=== PATIENT | male | born 1995 | race Caucasian/White ===

== ENCOUNTER 2017-03-10 22:00 | Emergency (ER) | payer SELFPAY ==
[2017-03-11 01:38] VITALS: BP 125/86
== END 2017-03-11 01:38 | disposition home or self-care (01) ==
LOC: ED 22:00
DX: S05.01XA Injury of conjunctiva and corneal abrasion without foreign body, right eye, initial encounter (principal); H10.211 Acute toxic conjunctivitis, right eye; T50.995A Adverse effect of other drugs, medicaments and biological substances, initial encounter; W22.8XXA Striking against or struck by other objects, initial encounter; Y99.8 Other external cause status; Y93.89 Activity, other specified